=== PATIENT | female | born 1985 | race Caucasian/White ===

== ENCOUNTER 2019-01-08 05:41 | Day surgery (SDC) | payer BC ==
[2019-01-08] MEDS ORDERED: MIDAZOLAM 1 MG/ML 2 ML INJ ×2 (09:00)
[2019-01-08] MEDS ORDERED: FENTAnyl 50 MCG/ML VIAL (09:00)
== END 2019-01-08 16:26 | disposition home or self-care (01) ==
LOC: GIL 05:41
DX: K29.50 Unspecified chronic gastritis without bleeding (principal)
CPT/HCPCS: 43239; 84703; 88305; 88312